=== PATIENT | female | born 1970 | race African-American/Black ===

== ENCOUNTER 2017-08-09 10:15 | Emergency (ER) | payer OTHER ==
[~2017-08-09] VITALS: Ht 180.3 cm; Wt 163.3 kg
--- NOTE | 2017-08-09 11:06 | ED HEADACHE COMPLAINT ---
History of Present Illness General Chief Complaint: Headache Stated Complaint: OTTO XS 3 DAYS Source: patient, family, old records Exam Limitations: no limitations Vital Signs & Intake/Output Vital Signs & Intake/Output Vital Signs Date Time Temp Pulse Resp B/P B/P Pulse O2 O2 Flow FiO2 Mean Ox Delivery Rate 08/09 1235 67 18 109/63 100 Room Air 08/09 1149 Room Air Room Air 08/09 1029 96.5 68 18 119/76 97 Room Air Room Air Allergies Coded Allergies: MDX - Penicillin (Intermediate, HIVES, ITCHING 11/14/11) Triage Note: TRIAGE: 47 Y/O FEMALE PRESENTS C/O HEADACHE -01/11. HEADACHE SINCE YESTERDAY MORNING - TAKEN MOTRIN - BUT NO RELIEF. ALSO C/O DIZZINESS WHILE AMBULATING. DECLINES WHEELCHAIR. Triage Nurses Notes Reviewed? yes HPI: Patient presents with headache that she's had constantly for the past 3 days. The pain is throbbing in nature. Patient states when she lays down the pain is in the back of her head but when she sits up his in the top and front of her head. The headache is pounding in as well. She denies any blurry vision but she has photophobia. She feels nauseous but has not vomited. There are no fevers or chills. She denies any difficulty walking. Patient states that she does suffer from headaches but this is slightly worse than normal and normally does not last 3 days. Past History Travel History Traveled to [place] past 21 day No Medical History Any Pertinent Medical History? see below for history Neurological: NONE EENT: NONE Cardiovascular: hypertension Musculoskeletal: TRIGEMINAL NEUROLGIA Surgical History Surgical History: GASTRIC SLEEVE Psychosocial History Who do you live with Daughter Services at Home None What is your primary language Japanese Tobacco Use: Never used ETOH Use: occasional use Illicit Drug Use: denies illicit drug use Family History Hx Contributory? No Review of Systems Review of Systems Constitutional: Reports: no symptoms. Eyes: Reports: no symptoms. Ears, Nose, Throat, Mouth: Reports: no symptoms. Respiratory: Reports: no symptoms. Cardiovascular: Reports: no symptoms. Gastrointestinal/Abdominal: Reports: see HPI, nausea. Genitourinary: Reports: no symptoms. Musculoskeletal: Reports: no symptoms. Skin: Reports: no symptoms. Neurological/Psychological: Reports: see HPI, numbness. Hematologic/Endocrine: Reports: no symptoms. Endocrine: Reports: no symptoms. Immunologic/Allergic: Reports: no symptoms. All Other Systems: Reviewed and Negative Physical Exam Physical Exam General Appearance: well developed/nourished, alert, awake, mild distress Head: atraumatic, normal appearance Eyes: Bilateral: PERRL, EOMI, other (SHARP DISK MARGINS). Ears, Nose, Throat: normal pharynx, normal ENT inspection, hearing grossly normal Neck: normal inspection, supple, full range of motion, no midline tenderness Respiratory: normal breath sounds, chest non-tender, no respiratory distress, lungs clear Cardiovascular: regular rate/rhythm, normal peripheral pulses Gastrointestinal: normal bowel sounds, soft, non-tender, no organomegaly Back: normal inspection, normal range of motion Extremities: normal inspection, normal capillary refill, normal range of motion, no edema Psychiatric: awake, alert, oriented x 3 Cranial Nerves: normal hearing, normal speech, PERRL Coordination/Gait: normal gait Motor/Sensory: no motor/sensory deficits Skin: intact, normal color, warm/dry Lymphatic: no anterior cervical kamran Core Measures Sepsis Present: No Sepsis Focused Exam Completed? No Progress Differential Diagnosis: migraine OTTO, sinusitis, subarach. Hem., tension OTTO Plan of Care: Orders Procedure Date/time Status COMPREHENSIVE METABOLIC PANEL 08/09 1105 Complete CBC WITHOUT DIFFERENTIAL 08/09 1105 Complete Laboratory Tests 08/09/17 1145: Anion Gap 12, Estimated GFR > 60, BUN/Creatinine Ratio 12.2, Glucose 83, Calcium 8.7, Total Bilirubin 0.4, AST 9 L, ALT 23, Alkaline Phosphatase 85, Total Protein 7.7, Albumin 3.7, Globulin 4.0, Albumin/Globulin Ratio 0.9 L, CBC w Diff NO MAN DIFF REQ, RBC 3.84 L, MCV 73.8 L, MCH 23.4 L, MCHC 31.8 L, RDW 20.3 H, MPV 6.4 L, Gran % 61.6, Lymphocytes % 27.3, Monocytes % 5.2, Eosinophils % 4.7, Basophils % 1.2, Absolute Granulocytes 4.8, Absolute Lymphocytes 2.1, Absolute Monocytes 0.4, Absolute Eosinophils 0.4, Absolute Basophils 0.1 Diagnostic Imaging: Viewed by Me: CT Scan. Discussed w/RAD: CT Scan. Radiology Impression: PATIENT: MOR METCALF PRESENT AGE: 47 PATIENT ACCOUNT NO: [id number] : 69 LOCATION: [facility] ORDERING PHYSICIAN: Ivan Enrique MD SERVICE DATE: 08/09/17 EXAM TYPE: CAT - CT HEAD WO IV CONTRAST EXAMINATION: CT HEAD WITHOUT CONTRAST CLINICAL INFORMATION: Headache. COMPARISON: Head CT 12/04/2008. TECHNIQUE: Contiguous axial imaging was performed from the skull base to vertex without intravenous administration of contrast. DLP: 647 mGy-cm. FINDINGS: There is no intracranial hemorrhage, large infarction, or mass lesion. There is no extra-axial collection. Although the willis-white differentiation appears mildly depressed globally this is likely artifactual. The ventricles and sulci appear normal and unchanged since 12/04/2008. The basilar cisterns are intact. The paranasal sinuses are clear. The mastoids and middle ear cavities are clear. IMPRESSION: No acute intracranial abnormality. No significant change since 12/04/2008. If more sensitive evaluation is needed, brain MRI is offered. DICTATED BY: Curtis Saenz MD DATE/TIME DICTATED:08/09/171133 DISTRICT RESOURCE OFFICER:TOÑITO DATE/ TIME TRANSCRIBED:08/09/171133 CONFIDENTIAL, DO NOT COPY WITHOUT APPROPRIATE AUTHORIZATION. <Electronically signed in Other Vendor System> SIGNED BY: Curtis Saenz MD 08/09/17 7179 Comments: Patient is feeling better and wants to go home. Departure Departure Disposition: HOME OR SELF CARE Condition: Stable Clinical Impression Primary Impression: Headache Referrals: Srikanth BUTLER,Walter Sanders (PCP/Family) Additional Instructions: RETURN IF SYMPTOMS WORSEN OR FOR ANY CONCENRS Departure Forms: Customer Survey General Discharge Information Prescriptions: Current Visit Scripts Metoclopramide HCl (Reglan) 1 TAB PO 4 TIMES/DAY PRN NAUSEA #20 TAB 30 minutes before meals and bedtime
--- NOTE | 2017-08-09 11:43 | CT SCAN REPORT ---
EXAMINATION: CT HEAD WITHOUT CONTRAST CLINICAL INFORMATION: Headache. COMPARISON: Head CT 12/04/2008. TECHNIQUE: Contiguous axial imaging was performed from the skull base to vertex without intravenous administration of contrast. DLP: 647 mGy-cm. FINDINGS: There is no intracranial hemorrhage, large infarction, or mass lesion. There is no extra-axial collection. Although the willis-white differentiation appears mildly depressed globally this is likely artifactual. The ventricles and sulci appear normal and unchanged since 12/04/2008. The basilar cisterns are intact. The paranasal sinuses are clear. The mastoids and middle ear cavities are clear. IMPRESSION: No acute intracranial abnormality. No significant change since 12/04/2008. If more sensitive evaluation is needed, brain MRI is offered.
[2017-08-09 11:54] LABS: ABSOLUTE BASOPHIL COUNT 0.1 /CUMM (0.0-0.2); ABSOLUTE EOSINOPHIL COUNT 0.4 /CUMM (0.0-0.7); ABSOLUTE GRANULOCYTE CT 4.8 /CUMM (1.4-6.5); ABSOLUTE LYMPH COUNT 2.1 /CUMM (1.2-3.4); ABSOLUTE MONOCYTE COUNT 0.4 /CUMM (0.10-0.60); BASOPHIL % 1.2 % (0.0-2.0); EOSINOPHIL % 4.7 % (0-5); GRANULOCYTE % 61.6 % (42.2-75.2); HEMATOCRIT 28.3 % (37-47); MEAN CORPUSCULAR HGB 23.4 PG (27.0-31.0); MEAN CORPUSCULAR HGB CONC 31.8 G/DL (33.0-37.0); MEAN CORPUSCULAR VOLUME 73.8 FL (81.0-99.0); MEAN PLATELET VOLUME 6.4 FL (7.4-10.4); PLATELET COUNT 465 /CUMM (130-400); RBC DISTRIBUTION WIDTH 20.3 % (11.5-14.5); RED BLOOD CELL CT 3.84 /CUMM (4.20-5.40); WHITE BLOOD CELL COUNT 7.7 /CUMM (4.8-10.8)
[2017-08-09 12:35] VITALS: BP 109/63
[2017-08-09] MEDS ORDERED: REGLAN10 M1 PO (12:48)
== END 2017-08-09 13:07 ==
LOC: ERH 10:15
PROVIDERS: Emergency Medicine
DX: R51 Headache (principal)
CPT/HCPCS: 96361; 96374; 96375; J1885; J2765

== ENCOUNTER 2017-11-13 12:09 | Emergency (ER) | payer OTHER ==
[~2017-11-13] VITALS: Ht 180.3 cm; Wt 152.4 kg
[~2017-11-13 12:09] MED LIST: REGLAN10 M1 PO
[2017-11-13 12:42] VITALS: BP 107/67
== END 2017-11-13 13:24 | disposition admitted as inpatient to this hospital (09) ==
LOC: ERH 12:09
DX: R10.2 Pelvic and perineal pain (principal)
CPT/HCPCS: 81025